=== PATIENT | female | born 1945 | race Caucasian/White ===

== ENCOUNTER → 2017-01-19 | Outpatient (CLI) | payer OTHER ==
[~2017-01-19] MED LIST: PROZAC20 MG PO
== END ==
LOC: CAT 07:49
PROVIDERS: Specialist
DX: I71.4 Abdominal aortic aneurysm, without rupture (principal); R10.9 Unspecified abdominal pain; K74.60 Unspecified cirrhosis of liver

== ENCOUNTER → 2017-04-24 | Outpatient (CLI) | payer OTHER ==
[~2017-04-24] VITALS: Ht 403.9 cm; Wt 53.5 kg
[~2017-04-24] MED LIST changes: +LEVSIN0.125 MG PO; +REMERON15 MG PO
--- NOTE | ~2017-04-24 | HPC ---
[facility] [place] [address] PAIN MANAGEMENT CONSULTATION Name: FIORELLA CORTES BALDEV Room #: REG CHARLESJuliette Callaway#: [id number] Admission: 04/24/17 Attend Phys: Louis Alonso MD Discharge: Date of : 45 Report #: [id number] THIS REPORT FOR: //name// CC: Edenilson Alonso DATE OF SERVICE: 04/24/2017 CHIEF COMPLAINT: Chronic abdominal pain. HISTORY OF PRESENT ILLNESS: I am seeing the patient today at the request of Dr. Stew Nielson. 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 She describes her pain as steady, burning, shooting, cramping and occasionally radiating around the abdomen. Made worse by all eating. She has not found any specific triggers. In addition to her abdominal pain, she suffers from constipation, frequent nausea and anorexia. Other symptoms include fatigue and weakness. She has been seen by Dr. Monsalve in [place], a [place] for patients with pancreatitis. Although she has no changes in lipase or amylase, she carries diagnosis and has had numerous procedures. 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 Treatments have included exercise. She goes to the gym 3 times a week and walks in gardens. She has been taking medication cautiously under the direction of Dr. Nielson. CURRENT MEDICATIONS: Fluoxetine 20 mg daily, chronic and a stool softener. PAST MEDICAL HISTORY: Mastectomy in 2003 and cholecystectomy in 2001 at what time a J-tube was placed following surgery. She had a shoulder surgery in 2000. SOCIAL HISTORY: Denies use of tobacco. She drinks alcohol, perhaps one glass of wine per week. FAMILY HISTORY: Father due to heart disease and had cancer as well. Mother from pancreatic cancer also. REVIEW OF SYSTEMS: Decreased appetite with chronic anorexia, total body fatigue, weakness, shortness of breath, dyspnea on exertion, frequent coughing, loss of appetite and constipation. She reports a history of depression. In routine questioning, the nurse asked if she has ever thought of taking her own life. She did admit to that and the answer was explored. She states she would not do so because of nondenominational belief, but she has had thoughts about taking her own life due to the severity of her abdominal pain. [address] [address] PAIN MANAGEMENT CONSULTATION Name: FIORELLA CORTES BALDEV Room #: REG [facility] Cesia#: [id number] Admission: 04/24/17 Attend Phys: Louis Alonso MD Discharge: Date of : 45 Report #: [id number] PHYSICAL EXAMINATION: GENERAL: She is calm and pleasant. VITAL SIGNS: Blood pressure 102/40, pulse is 77 and respirations 20. She is 5 feet 9 inches and weighs 118 pounds, which has a BMI 17.4. HEENT: Her pupils are equal, round and reactive to light. EOMs are intact. Mucous membranes are moist. NECK: Supple. CHEST: Clear. CARDIAC: Rhythm is regular. ABDOMEN: Scaphoid and diffusely tender, particularly tender, however, in the mid epigastric region. Bowel sounds are quite active. EXTREMITIES: Free of edema. IMPRESSION AND PLAN: Chronic abdominal pain, which is likely functional. 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 She feels more comfortable with the diagnosis of pancreatitis, which has less stigma associated with it. She saw my partner, Dr. Jake Oliveira in 2009 but did [address]. Oliveira had made suggestions that she be seen at the [facility], but she did not follow up. She was instructed to discontinue fluoxetine and start Cymbalta and underwent a short trial. She was given a small amount of hydrocodone in October of 2009 followed by naltrexone 50 mg one-half tablet t.i.d. also used sometimes for abdominal pain. This was followed by a trial of Pristiq antidepressant and Colace. She was then lost to our pain group until todays reconsult. Today, I have recommended that she discontinue fluoxetine once again, this time trialing mirtazapine. The antidepressant oftentimes is in appetite stimulant works quickly, attacks different receptors and may be more beneficial for abdominal pain. Fluoxetine is associated with the anorexia. We discussed the integrated medicine department at . This has been an excellent resource for many of our patients with chronic abdominal pain and they help to dentify triggering food substances and may identify diet would be less likely to trigger episodes of pain and nausea. Never was provided. A followup visit planned in 1 month. The initial dose of mirtazapine recommended 7.5 mg at bedtime. Finally, we did briefly discuss the possibility of more invasive therapies. This would include the possibility of celiac plexus block, which is rarely performed for patients with chronic noncancer abdominal pain and totally, I have done this only a handful of times in my 30-year career for a noncancer pain. Results have not been overly favorable. Short term benefit has been noted but only short term even with the patient who had recently performed a neurolytic [facility] [address] [place] [address] PAIN MANAGEMENT CONSULTATION Name: FIORELLA CORTES Room #: REG BASHIR Maria.#: [id number] Admission: 04/24/17 Attend Phys: Louis Alonso MD Discharge: Date of : 45 Report #: [id number] injection following a successful local anesthetic block. There is some experience at the [facility] in using spinal cord stimulation for chronic abdominal pain. Those studies are ongoing. Many questions were answered. We provided counseling and she was discharged to be seen back in 1 month. <ELECTRONICALLY SIGNED> By: Louis Alonso MD 05/18/17 1150 [id number] 1823 Louis Alonso MD /nt
[2017-04-24 09:59] VITALS: BP 102/40
== END | disposition home or self-care (01) ==
LOC: PAIN 04-17 13:49
DX: K85.90 Acute pancreatitis without necrosis or infection, unspecified (principal); Z98.890 Other specified postprocedural states; Z90.49 Acquired absence of other specified parts of digestive tract; R63.0 Anorexia

== ENCOUNTER → 2017-05-08 | Outpatient (CLI) | payer OTHER ==
[~2017-05-08] VITALS: Ht 175.3 cm; Wt 54.5 kg
--- NOTE | ~2017-05-08 | HPC ---
[facility] [place] [address] PAIN MANAGEMENT CONSULTATION Name: FIORELLA CORTES BALDEV Room #: REG BASHIR Callaway#: [id number] Admission: 05/08/17 Attend Phys: Louis Alonso MD Discharge: Date of : 45 Report #: [id number] THIS REPORT FOR: //name// CC: Stew Alonso DATE OF SERVICE: 05/08/2017 REASON FOR VISIT: Followup visit for chronic abdominal pain. The patient is in the pain clinic today for a 25-minute followup. We had a long discussion today about options for treatment of her mid epigastric pain. I previously gave her a trial of a new antidepressant mirtazapine. For 3 days, she thought she was a lot better. She said she still had the pain. She just felt better. Then, she began having nightmares, decided to stop it after a week and so she is back on her Prozac at 10 mg daily. Previously, she was at 20, I have told her to go back up to her higher dose. We have talked about pain pathways in some depth today. Etiology of her functional abdominal pain remains a bit in question. There is some thought that this may be related to Sphincter of Oddi spasm. She has not had a trial of Levsin. We decided to go ahead and start her today with Levsin 0.125 mg q. 6h. The anticholinergic effects and how they might alleviate pain as well as provide significant side effects were discussed. She will discontinue the medication if she is unable to tolerate it. Other options were discussed also in some length today. We have decided against the celiac plexus block. I have suggested that she might benefit from either spinal cord stimulation or intrathecal pump if she fails other treatments; although, she is reluctant to have something as aggressive as an implantable device for this current pain. It does cause quite a bit of discomfort for her and interferes dramatically with her daily activities, but the concept of an implantable device seems to be too aggressive for her at this time. PHYSICAL EXAMINATION: GENERAL: She is pleasant, alert and oriented. She does not appear overly depressed. We had a nice discussion about her treatment options. VITAL SIGNS: Her blood pressure is 120/57, heart rate 82, BMI is 17.7. ABDOMEN: Diffuse abdominal tenderness is noted. IMPRESSION: Chronic abdominal pain, possibly related to pancreatitis versus Sphincter of Oddi syndrome. Other options include functional abdominal pain. [facility] [address] [place] [address] PAIN MANAGEMENT CONSULTATION Name: FIORELLA CORTES BALDEV Room #: REG CLI Cesia#: [id number] Admission: 05/08/17 Attend Phys: Louis Alonso MD Discharge: Date of : 45 Report #: [id number] PLAN: Begin Levsin 0.125 mg q. 4 hours as needed. By: 1553 2048 Louis Alonso MD /nt
[2017-05-08 09:39] VITALS: BP 120/57
== END | disposition home or self-care (01) ==
LOC: PAIN 07:11
DX: Z76.0 Encounter for issue of repeat prescription (principal); G89.29 Other chronic pain; R10.13 Epigastric pain; K85.90 Acute pancreatitis without necrosis or infection, unspecified; Z98.890 Other specified postprocedural states; Z88.2 Allergy status to sulfonamides; Z88.8 Allergy status to other drugs, medicaments and biological substances

== ENCOUNTER → 2017-06-01 | Outpatient (CLI) | payer OTHER ==
[~2017-06-01] VITALS: Ht 175.3 cm; Wt 55.8 kg
--- NOTE | ~2017-06-01 | HPC ---
[facility] [place] [address] PAIN MANAGEMENT CONSULTATION Name: SUSANNALIANAIsaacFIORELLA BALDEV Room #: REG BASHIR Callaway#: [id number] Admission: 06/01/17 Attend Phys: Louis Alonso MD Discharge: Date of : 45 Report #: [id number] THIS REPORT FOR: //name// CC: JESSIE Alonso DATE OF SERVICE: 06/01/2017 Followup visit for chronic abdominal pain. The patient was in the clinic again today for about a 15-20 minute visit. We tried some medications, but we have decided that we will give up on oral medicines. She has sensitivities to many medicines, has tried many others and is really not getting much relief from her abdominal pain with oral regimens. She has an appointment coming up with Dr. Parker where she will undergo another diagnostic study, I believe she is going to have an EGD. After that, I would like to see her back in the clinic to discuss further options, which we began again today. We talked about advanced therapies for chronic intractable pain. Spinal cord stimulation and its use in abdominal pain has been pioneered in such places as [facility]. There are advantages to this therapy in that if it is effective, it does not need to be refilled, does not need medication, there are no potential medication related side effects and there are reported patients with abdominal pain who have done very well with his therapy. It has been less helpful in the early stages of spinal cord stimulation, but we now have such new stimulation devices and patterns, so we may be able to utilize that therapy. The second option is an intrathecal pump. This allows us to use micro doses of opioids and other medication and we have had good success in our practice in using pumps for this type of abdominal pain. I explained how intrathecal therapy works, but it is certainly more burdensome. She would need to be a chronic recurring patient in the pain clinic either ours or elsewhere for the duration of her life and the pump needs to be refilled about 4 times a year. While I found this to be very efficacious for many patients, I also recognized that the ____ burdens of care. There may be challenge for patients, particularly as they become older. She is going to just think about these things and discussed them further with others. She was given literature on both of these advanced pain therapies and I plan to see her back in the pain clinic after her visit with Dr. Pakrer. [address] [address] PAIN MANAGEMENT CONSULTATION Name: SUSANNAFIORELLA ODONNELL BALDEV Room #: REG CLJuliette Callaway#: [id number] Admission: 06/01/17 Attend Phys: Louis Alonso MD Discharge: Date of : 45 Report #: [id number] Total consultation time 20 minutes. By: 1248 1700 Louis Alonso MD /nt
[2017-06-01 10:48] VITALS: BP 91/47
== END ==
LOC: PAIN 07:03
DX: R10.9 Unspecified abdominal pain (principal)

== ENCOUNTER → 2017-11-09 | Outpatient (CLI) | payer OTHER | LOC: ULTRA 07:32 | DX: N28.1 Cyst of kidney, acquired (principal); I77.4 Celiac artery compression syndrome ==